=== PATIENT | male | born 1950 | race African-American/Black ===

== ENCOUNTER 2021-05-26 22:47 | Inpatient (IN) | payer MEDICARE ==
[~2021-05-26] VITALS: Ht 188 cm; Wt 68.5 kg
[2021-05-26] MEDS ORDERED: FERR325T23 PO (23:12)
[2021-05-26] MEDS ORDERED: OMEP20CA12 PO (23:12)
[2021-05-26] MEDS ORDERED: CARV25TA32 PO (23:12)
[2021-05-26] MEDS ORDERED: FOLI-130 PO (23:12)
[2021-05-26] MEDS ORDERED: ENAL20TA18 PO (23:12)
[2021-05-26] MEDS ORDERED: DOXA8 PO (23:12)
[2021-05-26] MEDS ORDERED: SIMV-43 PO (23:12)
[2021-05-26 23:15] LABS: BASOPHILS % (AUTO) 1.3 % (0.0-2.0); EOSINOPHILS % (AUTO) 0.2 % (1.0-6.0); HEMATOCRIT 41.3 % (41-53); HEMOGLOBIN 13.1 g/dL (13.5-17.5); LYMPHOCYTES # (AUTO) 1.1 K/uL (1.0-4.8); LYMPHOCYTES % (AUTO) 10.1 % (22.0-44.0); MEAN CORPUSCULAR HEMOGLOBIN 25.1 pg (26.0-34.0); MEAN CORPUSCULAR HGB CONC 31.8 G/dL (31.0-37.0); MEAN CORPUSCULAR VOLUME 79 fL (80-100); MONOCYTES # (AUTO) 0.8 K/uL (0.1-1.0); MONOCYTES % (AUTO) 7.4 % (2.0-9.0); NEUTROPHILS # (AUTO) 8.8 K/uL (1.8-7.7); PLATELET COUNT (AUTO) 155 K/uL (150-450); RED BLOOD CELL COUNT(AUTO) 5.23 MIL/uL (4.50-5.90); RED CELL DISTRIBUTION WIDTH 19.5 % (11.5-14.5)
[2021-05-26] MEDS ORDERED: FUROSEMIDE 40 MG/4 ML VIAL IVP ONE (23:15)
[2021-05-26 23:27] LABS: ANION GAP 11 mmol/L (8-16); CALCIUM, TOTAL 8.7 mg/dL (8.8-10.5); CARBON DIOXIDE 24 mmol/L (22-29); CHLORIDE 105 mmol/L (98-107); CREATININE 1.27 mg/dL (0.60-1.30); GLUCOSE,RANDOM 181 mg/dL (70-110); POTASSIUM 3.4 mmol/L (3.5-5.1); SODIUM SERUM 140 mmol/L (136-145); UREA NITROGEN, BLOOD 20 mg/dL (7-18)
[2021-05-26 23:30] LABS: GLOMERULAR FILTR. RATE CALC > 60 mL/min (>60)
[2021-05-26 23:32] LABS: ALANINE AMINOTRANSFERASE 37 U/L (12-78); ALBUMIN 2.6 g/dL (3.4-5.0); ALKALINE PHOSPHATASE 108 U/L (46-116); ASPARTATE AMINOTRANSFERASE 60 U/L (15-37); BILIRUBIN,TOTAL 0.4 mg/dL (0.1-1.0); TOTAL PROTEIN, SERUM 6.8 g/dL (6.4-8.2)
[2021-05-26 23:35] LABS: COVID AG,FIA SOURCE NASOPHARYNGEAL
[2021-05-26 23:50] LABS: B-TYPE NATRIURETIC PEPTIDE 765 pg/mL (0-100)
[2021-05-27] MEDS ORDERED: ACETAMINOPHEN 325 MG TABLET PO PRN ×2 (00:45→01:00)
[2021-05-27] MEDS ORDERED: ONDANSETRON HCL 4 MG/2 ML VIAL IVP PRN ×2 (00:45→01:00)
[2021-05-27] MEDS ORDERED: 0.9% SODIUM CHLORIDE 10 ML SYRINGE IVP PRN (00:45)
[2021-05-27] MEDS ORDERED: POTASSIUM CHL 10 MEQ/WATER 50 ML IV PRN (01:00)
[2021-05-27] MEDS ORDERED: POTASSIUM CHLORIDE 20 MEQ ER TABLET PO PRN (01:00)
[2021-05-27] MEDS ORDERED: POTASSIUM CHLORIDE 10% 40 MEQ/30 ML LIQUID UDCUP PO ONE (01:00)
[2021-05-27 01:51] VITALS: BP 163/101
[2021-05-27] MEDS ORDERED: PNEUMOCOCCAL VACCINE POLYVALENT 0.5 ML VIAL [PPSV23] IM. ONE (02:30)
[2021-05-27] MEDS ORDERED: INFLUENZA VIRUS VACCINE QVS 2021-22 (6MO+)/PF 60 MCG/0.5 ML SYRINGE IM. ONE (02:30)
[2021-05-27 07:58] VITALS: BP 158/88
[2021-05-27] MEDS: HEPARIN SODIUM,PORCINE 5,000 UNITS/ML VIAL SQ SCH ×2 (08:31→16:34)
[2021-05-27] MEDS: SIMVASTATIN 20 MG TABLET PO SCH (08:32)
[2021-05-27] MEDS: FOLIC ACID 1 MG TABLET PO SCH (08:32)
[2021-05-27] MEDS: FERROUS SULFATE 325 MG EC TABLET PO SCH (08:32)
[2021-05-27] MEDS: DOXAZOSIN MESYLATE 2 MG TABLET PO SCH (08:32)
[2021-05-27] MEDS: ENALAPRIL MALEATE 20 MG TABLET PO SCH (08:32)
[2021-05-27] MEDS: OMEPRAZOLE 20 MG CAPSULE PO SCH (08:32)
[2021-05-27] MEDS: CARVEDILOL 25 MG TABLET PO SCH (08:33)
[2021-05-27] MEDS ORDERED: FUROSEMIDE 20 MG/2 ML VIAL IVP SCH (09:00)
[2021-05-27 11:30] VITALS: BP 125/84
[2021-05-27] MEDS ORDERED: ALBUTEROL SULFATE 2.5 MG/0.5 ML NEB SOLUTION NEB PRN (15:00)
[2021-05-27] MEDS ORDERED: IPRATROPIUM BROMIDE 0.5 MG/2.5 ML NEB SOLUTION NEB PRN (15:00)
[2021-05-27] MEDS ORDERED: TIOT4MIS3 IH (15:04)
[2021-05-27 15:42] VITALS: BP 127/72
[2021-05-27] MEDS: BENZONATATE 100 MG CAPSULE PO SCH ×2 (16:33→21:46)
[2021-05-27] MEDS: MethylPREDNISolone SOD SUCC 125 MG/2 ML VIAL IVP SCH (16:34)
[2021-05-27] MEDS: FUROSEMIDE 20 MG/2 ML VIAL IVP SCH (16:34)
[2021-05-27] MEDS ORDERED: IPRATROPIUM BROMIDE 0.5 MG/2.5 ML NEB SOLUTION NEB SCH (20:00)
[2021-05-27] MEDS ORDERED: ALBUTEROL SULFATE 2.5 MG/0.5 ML NEB SOLUTION NEB SCH (20:00)
[2021-05-27 20:30] VITALS: BP 155/97
[2021-05-27 20:46] LABS: GLUCOMETER DEV NAME(LOC) 5N.3; GLUCOSE,POINT OF CARE 157 MG/DL (70-110)
[2021-05-27 20:53] VITALS: BP 122/75
[2021-05-27] MEDS: GuaiFENesin SR 600 MG ER TABLET PO SCH (21:46)
[2021-05-28] VITALS (7 sets, daily range): BP systolic 134–156; BP diastolic 77–91
[2021-05-28] MEDS: FUROSEMIDE 20 MG/2 ML VIAL IVP SCH ×3 (00:27→15:30)
[2021-05-28] MEDS: MethylPREDNISolone SOD SUCC 125 MG/2 ML VIAL IVP SCH ×3 (00:27→15:29)
[2021-05-28] MEDS: HEPARIN SODIUM,PORCINE 5,000 UNITS/ML VIAL SQ SCH ×3 (00:28→15:30)
[2021-05-28] MEDS: ENALAPRIL MALEATE 20 MG TABLET PO SCH (08:29)
[2021-05-28] MEDS: OMEPRAZOLE 20 MG CAPSULE PO SCH (08:30)
[2021-05-28] MEDS: DOXAZOSIN MESYLATE 2 MG TABLET PO SCH (08:30)
[2021-05-28] MEDS: GuaiFENesin SR 600 MG ER TABLET PO SCH ×2 (08:30→20:53)
[2021-05-28] MEDS: SIMVASTATIN 20 MG TABLET PO SCH (08:30)
[2021-05-28] MEDS: CARVEDILOL 25 MG TABLET PO SCH (08:30)
[2021-05-28] MEDS: FERROUS SULFATE 325 MG EC TABLET PO SCH (08:31)
[2021-05-28] MEDS: BENZONATATE 100 MG CAPSULE PO SCH ×3 (08:31→20:53)
[2021-05-28] MEDS: FOLIC ACID 1 MG TABLET PO SCH (09:00)
[2021-05-28] MEDS: IPRATROPIUM BROMIDE 0.5 MG/2.5 ML NEB SOLUTION NEB SCH ×2 (19:33→23:02)
[2021-05-28] MEDS: ALBUTEROL SULFATE 2.5 MG/0.5 ML NEB SOLUTION NEB SCH ×3 (19:33→23:02)
[2021-05-29] MEDS: MethylPREDNISolone SOD SUCC 125 MG/2 ML VIAL IVP SCH ×4 (00:02→23:55)
[2021-05-29] MEDS: HEPARIN SODIUM,PORCINE 5,000 UNITS/ML VIAL SQ SCH ×4 (00:02→23:56)
[2021-05-29] MEDS: FUROSEMIDE 20 MG/2 ML VIAL IVP SCH ×4 (00:02→23:56)
[2021-05-29] MEDS: IPRATROPIUM BROMIDE 0.5 MG/2.5 ML NEB SOLUTION NEB SCH ×6 (03:06→23:07)
[2021-05-29] MEDS: ALBUTEROL SULFATE 2.5 MG/0.5 ML NEB SOLUTION NEB SCH ×6 (03:06→23:07)
[2021-05-29 04:13] VITALS: BP 144/80
[2021-05-29 08:03] VITALS: BP 148/91
[2021-05-29 08:20] LABS: BASOPHILS % (AUTO) 0.3 % (0.0-2.0); EOSINOPHILS % (AUTO) 0.1 % (1.0-6.0); HEMATOCRIT 36.7 % (41-53); LYMPHOCYTES # (AUTO) 0.6 K/uL (1.0-4.8); MEAN CORPUSCULAR HEMOGLOBIN 25.5 pg (26.0-34.0); MEAN CORPUSCULAR HGB CONC 32.7 G/dL (31.0-37.0); MEAN CORPUSCULAR VOLUME 78 fL (80-100); MONOCYTES # (AUTO) 0.3 K/uL (0.1-1.0); MONOCYTES % (AUTO) 2.8 % (2.0-9.0); PLATELET COUNT (AUTO) 116 K/uL (150-450); RED BLOOD CELL COUNT(AUTO) 4.71 MIL/uL (4.50-5.90); RED CELL DISTRIBUTION WIDTH 18.9 % (11.5-14.5)
[2021-05-29 08:24] LABS: NEUTROPHILS % (AUTO) 91.8 % (40.0-70.0)
[2021-05-29 08:37] LABS: ALBUMIN 2.1 g/dL (3.4-5.0); BILIRUBIN,TOTAL 0.3 mg/dL (0.1-1.0); CALCIUM, TOTAL 9.1 mg/dL (8.8-10.5); CREATININE 1.4 mg/dL (0.60-1.30); POTASSIUM 4.8 mmol/L (3.5-5.1); TOTAL PROTEIN, SERUM 6.3 g/dL (6.4-8.2)
[2021-05-29] MEDS: DOXAZOSIN MESYLATE 2 MG TABLET PO SCH (09:04)
[2021-05-29] MEDS: OMEPRAZOLE 20 MG CAPSULE PO SCH (09:04)
[2021-05-29] MEDS: BENZONATATE 100 MG CAPSULE PO SCH ×3 (09:04→20:52)
[2021-05-29] MEDS: FOLIC ACID 1 MG TABLET PO SCH (09:05)
[2021-05-29] MEDS: CARVEDILOL 25 MG TABLET PO SCH ×2 (09:05→20:53)
[2021-05-29] MEDS: FERROUS SULFATE 325 MG EC TABLET PO SCH (09:05)
[2021-05-29] MEDS: ENALAPRIL MALEATE 20 MG TABLET PO SCH (09:05)
[2021-05-29] MEDS: GuaiFENesin SR 600 MG ER TABLET PO SCH ×2 (09:05→20:53)
[2021-05-29] MEDS: SIMVASTATIN 20 MG TABLET PO SCH (09:05)
[2021-05-29 11:56] VITALS: BP 155/87
[2021-05-29 16:14] VITALS: BP 150/87
[2021-05-29 20:17] VITALS: BP 156/95
[2021-05-30] VITALS (8 sets, daily range): BP systolic 150–166; BP diastolic 79–93
[2021-05-30] MEDS: IPRATROPIUM BROMIDE 0.5 MG/2.5 ML NEB SOLUTION NEB SCH ×6 (03:29→23:00)
[2021-05-30] MEDS: ALBUTEROL SULFATE 2.5 MG/0.5 ML NEB SOLUTION NEB SCH ×6 (03:29→23:00)
[2021-05-30] MEDS: HEPARIN SODIUM,PORCINE 5,000 UNITS/ML VIAL SQ SCH ×2 (09:52→17:18)
[2021-05-30] MEDS: DOXAZOSIN MESYLATE 2 MG TABLET PO SCH (09:53)
[2021-05-30] MEDS: CARVEDILOL 25 MG TABLET PO SCH ×2 (09:53→20:16)
[2021-05-30] MEDS: SIMVASTATIN 20 MG TABLET PO SCH (09:54)
[2021-05-30] MEDS: ENALAPRIL MALEATE 20 MG TABLET PO SCH (09:54)
[2021-05-30] MEDS: GuaiFENesin SR 600 MG ER TABLET PO SCH ×2 (09:54→20:15)
[2021-05-30] MEDS: BENZONATATE 100 MG CAPSULE PO SCH ×3 (09:54→20:15)
[2021-05-30] MEDS: OMEPRAZOLE 20 MG CAPSULE PO SCH (09:54)
[2021-05-30] MEDS: FOLIC ACID 1 MG TABLET PO SCH (09:54)
[2021-05-30] MEDS: FERROUS SULFATE 325 MG EC TABLET PO SCH (09:54)
[2021-05-30] MEDS: MethylPREDNISolone SOD SUCC 125 MG/2 ML VIAL IVP SCH ×2 (09:55→17:17)
[2021-05-30] MEDS: FUROSEMIDE 20 MG/2 ML VIAL IVP SCH ×2 (09:55→17:17)
[2021-05-30] MEDS: AmLODIPine BESYLATE 5 MG TABLET PO SCH (14:08)
[2021-05-31] MEDS: HEPARIN SODIUM,PORCINE 5,000 UNITS/ML VIAL SQ SCH ×3 (01:20→16:39)
[2021-05-31] MEDS: FUROSEMIDE 20 MG/2 ML VIAL IVP SCH ×3 (01:20→16:39)
[2021-05-31] MEDS: MethylPREDNISolone SOD SUCC 125 MG/2 ML VIAL IVP SCH ×3 (01:20→16:39)
[2021-05-31] MEDS: IPRATROPIUM BROMIDE 0.5 MG/2.5 ML NEB SOLUTION NEB SCH ×6 (03:00→23:05)
[2021-05-31] MEDS: ALBUTEROL SULFATE 2.5 MG/0.5 ML NEB SOLUTION NEB SCH ×6 (03:00→23:05)
[2021-05-31 03:38] VITALS: BP 137/89
[2021-05-31 09:02] VITALS: BP 152/91
[2021-05-31] MEDS: SIMVASTATIN 20 MG TABLET PO SCH (09:46)
[2021-05-31] MEDS: ENALAPRIL MALEATE 20 MG TABLET PO SCH (09:46)
[2021-05-31] MEDS: FERROUS SULFATE 325 MG EC TABLET PO SCH (09:46)
[2021-05-31] MEDS: CARVEDILOL 25 MG TABLET PO SCH ×2 (09:46→20:21)
[2021-05-31] MEDS: GuaiFENesin SR 600 MG ER TABLET PO SCH ×2 (09:46→20:21)
[2021-05-31] MEDS: OMEPRAZOLE 20 MG CAPSULE PO SCH (09:46)
[2021-05-31] MEDS: AmLODIPine BESYLATE 5 MG TABLET PO SCH ×2 (09:46→20:21)
[2021-05-31] MEDS: DOXAZOSIN MESYLATE 2 MG TABLET PO SCH (09:47)
[2021-05-31] MEDS: FOLIC ACID 1 MG TABLET PO SCH (09:47)
[2021-05-31] MEDS: BENZONATATE 100 MG CAPSULE PO SCH ×3 (09:47→20:21)
[2021-05-31 13:43] VITALS: BP 169/82
[2021-05-31 17:31] VITALS: BP 150/89
[2021-05-31 20:30] VITALS: BP 162/91
[2021-06-01] MEDS: HEPARIN SODIUM,PORCINE 5,000 UNITS/ML VIAL SQ SCH ×3 (00:18→16:00)
[2021-06-01] MEDS: MethylPREDNISolone SOD SUCC 125 MG/2 ML VIAL IVP SCH ×3 (00:18→16:19)
[2021-06-01] MEDS: FUROSEMIDE 20 MG/2 ML VIAL IVP SCH ×3 (00:18→16:20)
[2021-06-01 00:21] VITALS: BP 116/71
[2021-06-01] MEDS: IPRATROPIUM BROMIDE 0.5 MG/2.5 ML NEB SOLUTION NEB SCH ×6 (03:04→23:21)
[2021-06-01] MEDS: ALBUTEROL SULFATE 2.5 MG/0.5 ML NEB SOLUTION NEB SCH ×6 (03:04→23:21)
[2021-06-01 04:35] VITALS: BP 146/89
[2021-06-01 09:09] VITALS: BP 114/85
[2021-06-01] MEDS: CARVEDILOL 25 MG TABLET PO SCH ×2 (09:22→21:24)
[2021-06-01] MEDS: GuaiFENesin SR 600 MG ER TABLET PO SCH ×2 (09:22→21:24)
[2021-06-01] MEDS: FOLIC ACID 1 MG TABLET PO SCH (09:22)
[2021-06-01] MEDS: FERROUS SULFATE 325 MG EC TABLET PO SCH (09:22)
[2021-06-01] MEDS: MULTIVITAMINS WITH MINERALS, THERAPEUTIC TABLET PO SCH (09:23)
[2021-06-01] MEDS: OMEPRAZOLE 20 MG CAPSULE PO SCH (09:23)
[2021-06-01] MEDS: AmLODIPine BESYLATE 5 MG TABLET PO SCH ×2 (09:23→21:24)
[2021-06-01] MEDS: BENZONATATE 100 MG CAPSULE PO SCH ×3 (09:23→21:24)
[2021-06-01] MEDS: SIMVASTATIN 20 MG TABLET PO SCH (09:24)
[2021-06-01 12:33] VITALS: BP 119/81
[2021-06-01] MEDS: ENALAPRIL MALEATE 20 MG TABLET PO SCH (13:10)
[2021-06-01] MEDS: DOXAZOSIN MESYLATE 2 MG TABLET PO SCH (13:11)
[2021-06-01 20:15] VITALS: BP 160/94
[2021-06-02 00:23] VITALS: BP 151/72
[2021-06-02] MEDS: FUROSEMIDE 20 MG/2 ML VIAL IVP SCH ×3 (00:26→17:05)
[2021-06-02] MEDS: MethylPREDNISolone SOD SUCC 125 MG/2 ML VIAL IVP SCH ×3 (00:26→17:05)
[2021-06-02] MEDS: IPRATROPIUM BROMIDE 0.5 MG/2.5 ML NEB SOLUTION NEB SCH ×4 (03:32→14:52)
[2021-06-02] MEDS: ALBUTEROL SULFATE 2.5 MG/0.5 ML NEB SOLUTION NEB SCH ×4 (03:32→14:52)
[2021-06-02 04:51] VITALS: BP 146/78
[2021-06-02] MEDS: MULTIVITAMINS WITH MINERALS, THERAPEUTIC TABLET PO SCH (08:26)
[2021-06-02] MEDS: HEPARIN SODIUM,PORCINE 5,000 UNITS/ML VIAL SQ SCH ×3 (08:26→17:06)
[2021-06-02] MEDS: FERROUS SULFATE 325 MG EC TABLET PO SCH (08:26)
[2021-06-02] MEDS: SIMVASTATIN 20 MG TABLET PO SCH (08:26)
[2021-06-02] MEDS: ENALAPRIL MALEATE 20 MG TABLET PO SCH (08:27)
[2021-06-02] MEDS: BENZONATATE 100 MG CAPSULE PO SCH ×2 (08:27→17:05)
[2021-06-02] MEDS: CARVEDILOL 25 MG TABLET PO SCH (08:27)
[2021-06-02] MEDS: DOXAZOSIN MESYLATE 2 MG TABLET PO SCH (08:28)
[2021-06-02] MEDS: FOLIC ACID 1 MG TABLET PO SCH (08:28)
[2021-06-02] MEDS: GuaiFENesin SR 600 MG ER TABLET PO SCH (08:29)
[2021-06-02] MEDS: OMEPRAZOLE 20 MG CAPSULE PO SCH (08:29)
[2021-06-02] MEDS: AmLODIPine BESYLATE 5 MG TABLET PO SCH (08:29)
[2021-06-02 08:40] VITALS: BP 147/82
[2021-06-02] MEDS ORDERED: FURO20 PO (09:29)
[2021-06-02] MEDS ORDERED: ALBU8HFA IH (09:29)
[2021-06-02 14:58] VITALS: BP 118/71
[2021-06-02 17:12] VITALS: BP 154/72
== END 2021-06-02 19:50 | disposition home or self-care (01) | DRG 291 ==
LOC: EMS 22:48 → 5N 05-27 00:46
PROVIDERS: ADMIT Internal Medicine; ATTEND Internal Medicine
PROC: 5A09557 Assistance with Respiratory Ventilation, Greater than 96 Consecutive Hours, Continuous Positive Airway Pressure (ICD-10-PCS; principal; 2021-05-27)
DX: I11.0 Hypertensive heart disease with heart failure (principal); I50.21 Acute systolic (congestive) heart failure; J96.01 Acute respiratory failure with hypoxia; J44.1 Chronic obstructive pulmonary disease with (acute) exacerbation; G95.9 Disease of spinal cord, unspecified; I45.2 Bifascicular block; I42.0 Dilated cardiomyopathy; E87.6 Hypokalemia; I70.0 Atherosclerosis of aorta; D50.9 Iron deficiency anemia, unspecified; D53.8 Other specified nutritional anemias; G57.90 Unspecified mononeuropathy of unspecified lower limb; E78.5 Hyperlipidemia, unspecified; F17.200 Nicotine dependence, unspecified, uncomplicated; G62.9 Polyneuropathy, unspecified; Z20.822 Contact with and (suspected) exposure to COVID-19; Z79.899 Other long term (current) drug therapy; Z86.718 Personal history of other venous thrombosis and embolism; Z91.14 Patient's other noncompliance with medication regimen; Z95.828 Presence of other vascular implants and grafts; Z88.0 Allergy status to penicillin; Z99.3 Dependence on wheelchair
CPT/HCPCS: 70450; 71045; 71250; 80053; 82962; 83036; 83880; 84484; 85025; 93005; 93306; 94640; 94660; 97162; 97165; 97535; 99291; J1644; J1940; J2930; 36415-L1; 36415-TC; J7613

== ENCOUNTER 2022-01-03 13:55 | Emergency (ER) | payer MEDICARE ==
[~2022-01-03] VITALS: Ht 177.8 cm; Wt 68.2 kg
[~2022-01-03 13:55] MED LIST: ALBU8HFA IH; CARV25TA32 PO; DOXA8 PO; ENAL20TA18 PO; FERR325T23 PO; FOLI-130 PO; FURO20 PO; OMEP20CA12 PO; SIMV-43 PO; TIOT4MIS3 IH
[2022-01-03 15:00] LABS: BASOPHILS % (AUTO) 0.6 % (0.0-2.0); EOSINOPHILS % (AUTO) 0.4 % (1.0-6.0); HEMATOCRIT 41.5 % (41-53); HEMOGLOBIN 13.5 g/dL (13.5-17.5); LYMPHOCYTES # (AUTO) 0.7 K/uL (1.0-4.8); LYMPHOCYTES % (AUTO) 13.9 % (22.0-44.0); MEAN CORPUSCULAR HGB CONC 32.4 G/dL (31.0-37.0); MEAN CORPUSCULAR VOLUME 83 fL (80-100); MONOCYTES # (AUTO) 0.8 K/uL (0.1-1.0); MONOCYTES % (AUTO) 14.1 % (2.0-9.0); NEUTROPHILS # (AUTO) 3.8 K/uL (1.8-7.7); PLATELET COUNT (AUTO) 118 K/uL (150-450); RED BLOOD CELL COUNT(AUTO) 4.98 MIL/uL (4.50-5.90); RED CELL DISTRIBUTION WIDTH 16.6 % (11.5-14.5)
[2022-01-03] MEDS ORDERED: NITROGLYCERIN 50 MG/D5% WATER 250 ML IV PRN (15:00)
[2022-01-03 15:09] LABS: CALCIUM, TOTAL 9.6 mg/dL (8.8-10.5); CREATININE 1.55 mg/dL (0.60-1.30); POTASSIUM 4.4 mmol/L (3.5-5.1)
[2022-01-03 15:13] LABS: PROTHROMBIN TIME 10.4 SEC (9.4-11.6)
[2022-01-03 15:15] LABS: ALBUMIN 3.4 g/dL (3.4-5.0); BILIRUBIN,TOTAL 0.4 mg/dL (0.1-1.0)
[2022-01-03 15:52] LABS: COVID AG,FIA SOURCE NASAL SWAB
[2022-01-03] MEDS ORDERED: BISACODYL 10 MG RECTAL RECTAL SUPPOSITORY PR PRN (16:30)
[2022-01-03] MEDS ORDERED: ALBUTEROL SULFATE 2.5 MG/0.5 ML NEB SOLUTION NEB PRN (16:30)
[2022-01-03] MEDS ORDERED: ZOLPIDEM TARTRATE 5 MG TABLET PO PRN (16:30)
[2022-01-03] MEDS ORDERED: MORPHINE SULFATE 2 MG/ML SYRINGE IVP PRN (16:30)
[2022-01-03] MEDS ORDERED: MAGNESIUM HYDROXIDE SUSPENSION 30 ML UDCUP PO PRN (16:30)
[2022-01-03] MEDS ORDERED: ACETAMINOPHEN 325 MG TABLET PO PRN (16:30)
[2022-01-03] MEDS ORDERED: IPRATROPIUM BROMIDE 0.5 MG/2.5 ML NEB SOLUTION NEB PRN (16:30)
[2022-01-03] MEDS ORDERED: ONDANSETRON HCL 4 MG/2 ML VIAL IVP PRN (16:30)
[2022-01-03] MEDS ORDERED: HYDROCODONE/ACETAMINOPHEN 5-325 MG TABLET PO PRN (16:30)
[2022-01-03] MEDS ORDERED: SACU1TAB PO (16:31)
[2022-01-03] MEDS ORDERED: HYDR-4174 PO (16:31)
[2022-01-03] MEDS ORDERED: METO-408 PO (16:31)
[2022-01-03] MEDS ORDERED: ISOS60TA77 PO (16:31)
[2022-01-03] MEDS ORDERED: AZITHROMYCIN 500 MG/NS 250 ML IV SCH (18:00)
[2022-01-03] MEDS ORDERED: MethylPREDNISolone SOD SUCC 125 MG/2 ML VIAL IVP SCH (18:00)
[2022-01-03 19:53] LABS: APPEARANCE,URINE HAZY (CLEAR); BILIRUBIN,URINE NEGATIVE (NEGATIVE); GLUCOSE, URINE (UA) NEGATIVE (NEGATIVE); KETONES,URINE TRACE mg/dL (NEGATIVE); LEUKOCYTE ESTERASE ,URINE LARGE (NEGATIVE); NITRATE,URINE POSITIVE (NEGATIVE); OCCULT BLOOD,URINE NEGATIVE (NEGATIVE); PH,URINE 5.5 (5.0-8.0); PROTEIN,URINE 100-200,SEE CONFIRM mg/dL (NEGATIVE); SPECIFIC GRAVITIY, URINE 1.032 (1.003-1.030); UROBILINOGEN,URINE <=1.0 mg/dL (<=1.0)
[2022-01-03] MEDS ORDERED: ALBUTEROL SULFATE 2.5 MG/0.5 ML NEB SOLUTION NEB SCH (20:00)
[2022-01-03] MEDS ORDERED: IPRATROPIUM BROMIDE 0.5 MG/2.5 ML NEB SOLUTION NEB SCH (20:00)
[2022-01-03 20:31] LABS: SULFOSALICYLIC ACID,URINE 3+ (Negative)
[2022-01-03 20:32] LABS: BACTERIA,URINE Many /HPF (None Seen); WBC,URINE 51-100 /HPF (0-5)
[2022-01-03 20:33] LABS: CALCIUM OXALATE CRYSTALS,UR Few /LPF (None Seen); RBC,URINE None Seen /HPF (0-2)
[2022-01-03 20:46] VITALS: BP 168/98
[2022-01-03] MEDS ORDERED: FUROSEMIDE 20 MG TABLET PO SCH (21:00)
[2022-01-03] MEDS ORDERED: SIMVASTATIN 20 MG TABLET PO SCH (21:00)
[2022-01-03] MEDS ORDERED: CARVEDILOL 25 MG TABLET PO SCH (21:00)
[2022-01-03] MEDS ORDERED: GuaiFENesin SR 600 MG ER TABLET PO SCH (21:00)
[2022-01-03] MEDS ORDERED: DOCUSATE SODIUM 100 MG CAPSULE PO SCH (21:00)
[2022-01-03] MEDS ORDERED: ENALAPRIL MALEATE 20 MG TABLET PO SCH (21:00)
[2022-01-03] MEDS ORDERED: BENZONATATE 100 MG CAPSULE PO SCH (21:00)
[2022-01-04] MEDS ORDERED: HEPARIN SODIUM,PORCINE 5,000 UNITS/ML VIAL SQ SCH
[2022-01-04] MEDS ORDERED: OMEPRAZOLE 20 MG CAPSULE PO SCH (09:00)
[2022-01-04] MEDS ORDERED: PANTOPRAZOLE SODIUM 40 MG DR TABLET PO SCH (09:00)
[2022-01-04] MEDS ORDERED: FOLIC ACID 1 MG TABLET PO SCH (09:00)
== END 2022-01-03 21:47 | disposition short-term general hospital (02) ==
LOC: EMS 14:00
DX: I16.0 Hypertensive urgency (principal); I11.0 Hypertensive heart disease with heart failure; J44.1 Chronic obstructive pulmonary disease with (acute) exacerbation; E78.5 Hyperlipidemia, unspecified; K21.9 Gastro-esophageal reflux disease without esophagitis; F17.210 Nicotine dependence, cigarettes, uncomplicated; Z88.0 Allergy status to penicillin; Z20.822 Contact with and (suspected) exposure to COVID-19
CPT/HCPCS: 99284; 96365; 71045; 96366; 87426; 80053; 81001; 83880; 84484; 85025; 85610; 85730; 36415; 87086; 87186; 93005; 81002; J3490; 99285; J0456; J2930; J7613